=== PATIENT | female | born 1955 | race Two or more races ===

== ENCOUNTER 2017-03-29 11:28 | Inpatient (IN) | payer MEDICAID ==
[~2017-03-29] VITALS: Ht 154.9 cm; Wt 86.2 kg
[2017-03-29 12:04] LABS: Basophils # (auto) 0.1 uL; Basophils % (auto) 0.9 % (0.0-2.0); Eosinophils # (auto) 0.3 uL; Eosinophils % (auto) 4.2 % (0.0-7.0); Hematocrit 43.2 % (36.0-46.0); Hemoglobin 14.5 g/dL (12.2-16.2); Lymphocytes # (auto) 2.2 uL; Lymphocytes % (auto) 30.2 % (10.0-50.0); Mean Corpuscular Hemoglobin 29.6 pg (28.0-32.0); Mean Corpuscular Hgb Conc. 33.4 g/dL (32.0-36.0); Mean Corpuscular Volume 88.5 fL (80.0-100.0); Monocytes # (auto) 0.6 uL; Monocytes % (auto) 7.8 % (0.0-12.0); Neutrophils # (auto) 4.1 uL; Neutrophils % (auto) 56.9 % (37.0-80.0); Nucleated Red Blood Cells % 0.1 %; Platelet Count (auto) 228 10^3/uL (140-450); Red Blood Cells 4.88 10^6/uL (4.0-5.20); Red Cell Distribution Width 13.7 % (11.8-14.3); White Blood Cell 7.2 10^3/uL (4.4-10.8)
[2017-03-29 12:31] LABS: Alanine Aminotransferase 38 U/L (13-56); Anion Gap 8 (5-15); Aspartate Aminotransferase 27 U/L (15-37); BUN/Creatinine Ratio 18.9; Blood Urea Nitrogen 14 mg/dL (7-18); Calcium 9.6 mg/dL (8.5-10.1); Carbon Dioxide 28 mmol/L (21-32); Chloride 101 mmol/L (98-107); GFR African American 102 mL/min; GFR Non-African American 85 mL/min; Glucose 212 mg/dL (74-106); Magnesium 1.9 mg/dL (1.6-2.6); Sodium 137 mmol/L (136-145)
[2017-03-29 12:35] LABS: Alkaline Phosphatase 119 U/L (45-117); Bilirubin, Total 0.5 mg/dL (0.2-1.0); Total Protein 7.9 g/dL (6.4-8.2)
[2017-03-29] MEDS ORDERED: cloNIDine HCL 0.1 MG TAB ONE (19:27)
[2017-03-29] MEDS ORDERED: MORPHINE SULFATE 4 MG/ML SYR/VIAL IV PRN ×2 (19:30)
[2017-03-29] MEDS ORDERED: ACETAMINOPHEN 500 MG TAB PO PRN (19:30)
[2017-03-29] MEDS ORDERED: NITROGLYCERIN 0.4 MG SL TAB SL PRN (19:30)
[2017-03-29] MEDS ORDERED: TEMAZEPAM 15 MG CAP PO PRN (19:30)
[2017-03-29] MEDS ORDERED: PROMETHAZINE HCL 25 MG/ML 1ML IV PRN (19:30)
[2017-03-29] MEDS ORDERED: LACTULOSE 20Gm/30ML SOLN PO PRN (19:30)
[2017-03-29] MEDS ORDERED: ASPirin 81 mg TAB PO ONE (19:30)
[2017-03-29] MEDS ORDERED: cloNIDine HCL 0.1 MG TAB PO ONE ×2 (19:30)
[2017-03-29] MEDS ORDERED: HYDROcodone-ACET 5/325MG TAB PO PRN (19:30)
[2017-03-29] MEDS ORDERED: DEXTROSE (50%) 50ML SYRG IV PRN (19:30)
[2017-03-29] MEDS ORDERED: LORazepam 0.5 MG TAB PO PRN (19:30)
[2017-03-29 20:01] LABS: INR 0.95 (0.9-1.15); Partial Thromboplastin Time 26.2 sec (22.64-33.71); Prothrombin Time 10.4 sec (9.37-12.3)
[2017-03-29 22:15] VITALS: BP 106/61
[2017-03-29 22:24] LABS: Urine Bacteria NONE SEEN /hpf (None Seen); Urine Blood Negative /uL (Negative); Urine Specific Gravity 1.008 (1.001-1.035); Urine WBC 1 /hpf (0 - 5)
[2017-03-29] MEDS: ATORVASTATIN 20 MG TAB PO SCH (22:28)
[2017-03-29] MEDS: METOPROLOL TARTRATE 25 MG TAB PO SCH (22:29)
[2017-03-29] MEDS: InsuLIN REG 1unit/0.01ml Soln (100units/ml) SC SCH (22:31)
[2017-03-29] MEDS: ACCU-CHEK COMFORT CURVE STRIP VI SCH (22:32)
[2017-03-29 22:41] LABS: Alcohol, Urine < 3.0 mg/dL (0-5); Amphetamine Screen, Urine NEGATIVE (NEGATIVE); Barbiturate Scree,Urine NEGATIVE (NEGATIVE); Benzodiazephine Screen, Urine NEGATIVE (NEGATIVE); Cannabinoid Screen, Urine NEGATIVE (NEGATIVE); Cocaine Screen, Urine NEGATIVE (NEGATIVE); Opiate Scree,Urine NEGATIVE (NEGATIVE); Phencyclidine Screen, Urine NEGATIVE (NEGATIVE)
[2017-03-30] MEDS: SODIUM CHLORIDE 0.9% 1,000 ML IV SCH ×2 (02:07→08:47)
[2017-03-30 04:41] VITALS: BP 96/53
[2017-03-30] MEDS: ACCU-CHEK COMFORT CURVE STRIP VI SCH ×4 (07:08→22:48)
[2017-03-30] MEDS: InsuLIN REG 1unit/0.01ml Soln (100units/ml) SC SCH ×4 (07:08→22:47)
[2017-03-30 07:40] LABS: Cholesterol 135 mg/dL (< 200); HDL Cholesterol 50 mg/dL (40-59); LDL Cholesterol 69 mg/dL (< 100); Triglycerides 148 mg/dL (< 150)
[2017-03-30 09:00] VITALS: BP 104/59
[2017-03-30] MEDS ORDERED: GLIP-115 PO (09:32)
[2017-03-30] MEDS ORDERED: NAP500T PO (09:32)
[2017-03-30] MEDS ORDERED: LORA-622 PO (09:32)
[2017-03-30] MEDS ORDERED: HYDR12.56 PO (09:32)
[2017-03-30] MEDS ORDERED: METF-370 PO (09:32)
[2017-03-30] MEDS ORDERED: LEVO50TA7 PO (09:32)
[2017-03-30] MEDS ORDERED: FAMO-12 PO (09:32)
[2017-03-30] MEDS ORDERED: ATOR10TA PO (09:32)
[2017-03-30] MEDS ORDERED: RANI300C7 PO (09:32)
[2017-03-30] MEDS ORDERED: FLUT0.05 NAS (09:32)
[2017-03-30] MEDS: METOPROLOL TARTRATE 25 MG TAB PO SCH ×2 (10:00→21:45)
[2017-03-30] MEDS: NITROGLYCERIN 0.2MG/HR TOPICAL PATCH TD SCH (10:00)
[2017-03-30] MEDS: PANTOPRAZOLE 40 MG TAB PO SCH (10:20)
[2017-03-30] MEDS: ASPirin 81 mg TAB PO SCH (10:20)
[2017-03-30] MEDS: ENOXAPARIN SOD 40 MG/0.4 ML SYRINGE SC SCH (10:20)
[2017-03-30] MEDS ORDERED: LOSA50TA6 PO (10:34)
[2017-03-30 13:00] VITALS: BP 113/55
[2017-03-30 17:43] VITALS: BP 131/72
[2017-03-30] MEDS: ATORVASTATIN 20 MG TAB PO SCH (21:43)
[2017-03-30 21:45] VITALS: BP 129/75
[2017-03-31] MEDS: SODIUM CHLORIDE 0.9% 1,000 ML IV SCH ×2 (00:58→12:22)
[2017-03-31 05:11] VITALS: BP 134/80
[2017-03-31] MEDS: InsuLIN REG 1unit/0.01ml Soln (100units/ml) SC SCH ×3 (07:00→17:00)
[2017-03-31] MEDS: ACCU-CHEK COMFORT CURVE STRIP VI SCH ×3 (07:27→17:00)
[2017-03-31 09:00] VITALS: BP 122/76
[2017-03-31] MEDS ORDERED: ADENOSINE 72 MG in GIVE UN-DILUTED 0 ML IV ONE (09:00)
[2017-03-31 09:50] VITALS: BP 178/82
[2017-03-31] MEDS: ENOXAPARIN SOD 40 MG/0.4 ML SYRINGE SC SCH (10:00)
[2017-03-31] MEDS: METOPROLOL TARTRATE 25 MG TAB PO SCH (10:00)
[2017-03-31] MEDS: PANTOPRAZOLE 40 MG TAB PO SCH (10:00)
[2017-03-31] MEDS: NITROGLYCERIN 0.2MG/HR TOPICAL PATCH TD SCH (10:00)
[2017-03-31] MEDS: ASPirin 81 mg TAB PO SCH (10:00)
[2017-03-31 11:06] LABS: Folate (Folic Acid) 17.63 ng/mL (5.38-24)
[2017-03-31 12:00] VITALS: BP 143/73
[2017-03-31 17:00] VITALS: BP 133/74
== END 2017-03-31 19:35 | disposition home or self-care (01) | DRG 47 ==
LOC: ER 11:28 → TELE 11:29 → TELE-CENTR 19:58
PROVIDERS: ADMIT Internal Medicine; ATTEND Internal Medicine
DX: G45.9 Transient cerebral ischemic attack, unspecified (principal); I24.9 Acute ischemic heart disease, unspecified; E11.65 Type 2 diabetes mellitus with hyperglycemia; I10 Essential (primary) hypertension; R07.89 Other chest pain; J44.9 Chronic obstructive pulmonary disease, unspecified; R63.4 Abnormal weight loss; I16.0 Hypertensive urgency; E03.9 Hypothyroidism, unspecified; E66.9 Obesity, unspecified; R21 Rash and other nonspecific skin eruption; Z68.35 Body mass index [BMI] 35.0-35.9, adult; Z63.4 Disappearance and death of family member; Z82.49 Family history of ischemic heart disease and other diseases of the circulatory system; Z83.3 Family history of diabetes mellitus; Z87.891 Personal history of nicotine dependence; Z90.710 Acquired absence of both cervix and uterus; Z90.49 Acquired absence of other specified parts of digestive tract; Z88.6 Allergy status to analgesic agent
CPT/HCPCS: 36415; 70450; 71046; 80053; 80061; 80307; 81001; 82550; 82607; 82746; 82962; 83036; 83735; 84443; 84484; 85025; 85379; 85610; 85652; 85730; 86141; 93005; 93017; 93306; 93886; 94761; J0153; J1815

== ENCOUNTER 2021-06-15 14:24 | Emergency (ER) | payer OTHER, MEDICAID ==
[~2021-06-15] VITALS: Ht 165.1 cm; Wt 75.7 kg
[~2021-06-15 14:24] MED LIST: ATOR10TA PO; FAMO-12 PO; FLUT0.05 NAS; GLIP5TAB12 PO; HYDR12.56 PO; LEVO50TA7 PO; LORA-622 PO; LOSA-69 PO; METF-370 PO; NAP500T PO; RANI300C7 PO
[2021-06-15] MEDS ORDERED: cloNIDine HCL 0.1 MG TAB ONE (14:35)
[2021-06-15] MEDS ORDERED: cloNIDine HCL 0.1 MG TAB PO ONE (14:45)
[2021-06-15 15:46] LABS: Basophils # (auto) 0 10 ^3/uL (0-0.2); Basophils % (auto) 0.5 % (0.0-2.0); Eosinophils # (auto) 0.1 10 ^3/uL (0-0.8); Eosinophils % (auto) 1.6 % (0.0-7.0); Hematocrit 38.4 % (36.0-46.0); Hemoglobin 12.9 g/dL (12.2-16.2); Lymphocytes # (auto) 1.8 10 ^3/uL (0.4-5.4); Lymphocytes % (auto) 27.8 % (10.0-50.0); Mean Corpuscular Hemoglobin 28.5 pg (28.0-32.0); Mean Corpuscular Hgb Conc. 33.7 g/dL (32.0-36.0); Mean Corpuscular Volume 84.6 fL (80.0-100.0); Monocytes # (auto) 0.4 10 ^3/uL (0-1.3); Monocytes % (auto) 5.8 % (0.0-12.0); Neutrophils # (auto) 4.2 10 ^3/uL (1.6-8.6); Neutrophils % (auto) 64.3 % (37.0-80.0); Nucleated Red Blood Cells % 0.1 %; Red Blood Cells 4.53 10^6/uL (4.0-5.20); Red Cell Distribution Width 14.9 % (11.8-14.3); White Blood Cell 6.6 10^3/uL (4.4-10.8)
[2021-06-15] MEDS ORDERED: ACETAMINOPHEN 325 MG TAB PO ONE (16:00)
[2021-06-15 16:08] LABS: Albumin 3.8 g/dL (3.4-5.0); BUN/Creatinine Ratio 18.1; Calcium 10.2 mg/dL (8.5-10.1); Potassium 4.1 mmol/L (3.5-5.1)
[2021-06-15 16:11] LABS: Bilirubin, Total 0.6 mg/dL (0.2-1.0); Total Protein 7.6 g/dL (6.4-8.2)
[2021-06-15] MEDS ORDERED: MECLIZINE HCL 25 MG TAB PO ONE (17:30)
[2021-06-15] MEDS ORDERED: ONDANSETRON ODT 4 MG TAB PO ONE (17:30)
[2021-06-15 17:58] VITALS: BP 112/55
[2021-06-15] MEDS ORDERED: MECL25CH38 PO (18:05)
== END 2021-06-15 18:08 | disposition home or self-care (01) ==
LOC: ER 14:24
DX: I10 Essential (primary) hypertension (principal); E11.9 Type 2 diabetes mellitus without complications; Z90.710 Acquired absence of both cervix and uterus; Z88.6 Allergy status to analgesic agent
CPT/HCPCS: 36415; 71045; 80053; 84484; 85025; 93005; 99285; J8597

== ENCOUNTER 2022-12-26 10:57 | Emergency (ER) | payer OTHER, MEDICAID ==
[~2022-12-26] VITALS: Ht 154.9 cm; Wt 75.1 kg
[2022-12-26 10:57] VITALS: BP 137/67; PULSE 71; RESP 18; TEMP 97.7; O2SAT 98
[~2022-12-26 10:57] MED LIST changes: -HYDR12.56 PO; +HYDR12.59 PO; -LOSA-69 PO; +LOSA50TA46 PO; +MECL25CH38 PO
[2022-12-26] MEDS ORDERED: CEPH500C PO (12:38)
== END 2022-12-26 12:53 | disposition home or self-care (01) ==
LOC: ER 10:57
DX: L03.032 Cellulitis of left toe (principal); L03.031 Cellulitis of right toe; E11.9 Type 2 diabetes mellitus without complications; I10 Essential (primary) hypertension; Z90.710 Acquired absence of both cervix and uterus; Z88.6 Allergy status to analgesic agent

== ENCOUNTER 2024-11-29 09:29 | Emergency (ER) | payer OTHER, MEDICAID ==
[~2024-11-29] VITALS: Ht 152.4 cm; Wt 74.4 kg
[~2024-11-29 09:29] MED LIST changes: +CEPH500C PO; -GLIP5TAB12 PO; +GLIP5TAB21 PO; +LOSA-534 PO; -LOSA50TA46 PO
--- NOTE | 2024-11-29 10:27 | ED.PDOC ---
Eye-HPI HPI Comments 69-year-old female who is [place]i-speaking presents to the ER with a chief complaint of tongue pain. Patient reports that she was referred to [facility] by her dental provider for maxillofacial surgeon. The patient went to that referred dentist this morning and was informed by Dr. Feliciano that there were no oral surgeons in the [facility] and has to go to the ER. Denies any other symptoms at this time. Chief Complaint: Tooth Pain Time Seen by MD: 10:20 Primary Care Provider: Chantelle Allergies: Coded Allergies: Tramadol (Verified Allergy, Unknown, 03/29/17) Home Meds Active Scripts Cephalexin Monohydrate (Cephalexin) 500 Mg Cap, 1 CAP PO TID, #30 CAP Prov:MAGGIE DELGADILLO 12/26/22 Meclizine HCl (Meclizine) 25 Mg Chw, 25 MG PO Q6HP PRN for 10 Days, #14 TAB Prov:LUIS CARSON MD 06/15/21 Reported Medications Losartan Potassium (Losartan Potassium) 50 Mg Tab, 50 MG PO DAILY for 30 Days, MG 03/30/17 Loratadine (Claritin) 10 Mg Tab, 1 TAB PO DAILY, #30 TAB 5 Refills 03/30/17 Famotidine (Famotidine) 20 Mg Tab, 20 MG PO BID for 30 Days, MG 03/30/17 Naproxen (NAPROSYN TABLET) 500 Mg Tb, 1 TAB PO BID, #60 TAB 1 Refill 03/30/17 Atorvastatin Calcium (Lipitor) 10 Mg Tab, 1 TAB PO QPM, #90 TAB 1 Refill 03/30/17 Fluticasone Propionate (Fluticasone Propionate) 0.05 % Cre, 50 MCG [facility] for 30 Days, MCG 03/30/17 Glipizide (Glipizide) 5 Mg Tab, 5 MG PO for 30 Days, MG 03/30/17 Hydrochlorothiazide (Hydrochlorothiazide) 12.5 Mg Cap, 12.5 MG PO DAILY for 30 Days, MG 03/30/17 Levothyroxine Sodium (Levothyroxine Sodium) 50 Mcg Tab, 75 MCG PO QAM for 30 Days, MCG 03/30/17 Ranitidine Hcl (Ranitidine Hcl) 300 Mg Cap, 1 CAP PO DAILY, #30 CAP 3 Refills 03/30/17 Metformin Hydrochloride (Metformin Hcl) 500 Mg Tab, 1000 MG PO IBID for 30 Days, MG 03/30/17 Mode of Arrival: Ambulatory Past Medical History PAST MEDICAL HISTORY: DM, HTN, Thyroid Surgical History: Hysterectomy [employer] History: No Pertinent [employer] History Family History Family History: Reviewed,noncontributory to illness, Unknown Social History Smoker: Non-Smoker Alcohol: Denies ETOH Use Drugs: Denies Drug Use Lives In: Home Constitutional: denies: chills, diaphoresis, fatigue, fever, malaise, sweats, weakness, others EENTM: reports: mouth pain, others; denies: blurred vision, double vision, ear bleeding, ear discharge, ear drainage, ear pain, ear ringing, eye pain, eye redness, hearing loss, mouth swelling, nasal discharge, nose bleeding, nose congestion, nose pain, photophobia, tearing, throat pain, throat swelling, voice changes Respiratory: denies: cough, hemoptysis, orthopnea, SOB at rest, shortness of breath, SOB with excertion, stridor, wheezing, others Cardiovascular: denies: chest pain, dizzy spells, diaphoresis, Dyspnea on exertion, edema, irregular heart beat, left arm pain, lightheadedness, p alpitations, PND, syncope, others Gastrointestinal: denies: abdomen distended, abdominal pain, blood streaked bowels, constipated, diarrhea, dysphagia, difficulty swallowing, hematemesis, melena, nausea, poor appetite, poor fluid intake, rectal bleeding, rectal pain, vomiting, others Genitourinary: denies: abnormal vagina bleeding, burning, dyspareunia, dysuria, flank pain, frequency, hematuria, incontinence, pain, , vagina discharge, urgency, others Neurological: denies: dizziness, fainting, headache, left sided numbness, left sided weakness, numbness, paresthesia, pre-existing deficit, right sided numbness, right sided weakness, seizure, speech problems, tingling, tremors, weakness, others Musculoskeletal: denies: back pain, gout, joint pain, joint swelling, muscle pain, muscle stiffness, neck pain, others Integumetry: denies: bruises, change in color, change in hair/nails, dryness, laceration, lesions, lumps, rash, wounds, others Allergic/Immunocompromised: denies: Difficulty Healing, Frequent Infections, Hives, Itching, others Hematologic/Lymphatic: denies: anemia, blood clots, easy bleeding, easy bruising, swollen glands, others Endocrine: denies: excessive hunger, excessive sweating, excessive thirst, excessive urination, flushing, intolerance to cold, intolerance to heat, unexplained weight gain, unexplained weight loss, others Psychiatric: denies: anxiety, bipolar disorder, depression, hopeless, panic disorder, schizophrenia, sleepless, suicidal, others All Other Systems: Reviewed and Negative Physical Exam Exam Comments 1 mm white papule to the tip of the right side tongue, mmm, uvula midline General Appearance: No Apparent Distress, Normal HEENT: Normal ENT Inspection, Pharynx Normal, TMs Normal Neck: Full Range of Motion, Non-Tender, Normal, Normal Inspection Respiratory: Chest Non-Tender, Lungs Clear, No Accessory Muscle Use, No Respiratory Distress, Normal Breath Sounds Cardiovascular: No Edema, No JVD, No Murmur, No Gallop, Normal Peripheral Pulses, Regular Rate/Rhythm Breast Exam: Deferred Gastrointestinal: No Organomegaly, Non Tender, No Pulsatile Mass, Normal Bowel Sounds, Soft Genitalia: Deferred Pelvic: Deferred Rectal: Deferred Extremities: No calf tenderness, Normal capillary refill, Normal inspection, Normal range of motion, Non-tender, No pedal edema Musculoskeletal : Apperance: Normal Neurologic: Alert, fisher terrapin II-XII nml as Tested, No Motor Deficits, Normal Affect, Normal Mood, No Sensory Deficits Cerebellar Function: Normal Reflexes: Normal Skin: Dry, Normal Color, Warm Lymphatic: No Adenopathy Was a procedure done? Was a procedure done?: No EENT DIFF Eye: N/A, Other Nose: N/A Mouth: N/A Sore Throat: N/A X-Ray, Labs, Meds, VS Vital Signs Date Time Temp Pulse Resp B/P (MAP) Pulse Ox O2 Delivery O2 Flow Rate FiO2 11/29/24 10:33 98.7 78 16 142/89 (106) 98 98.7 11/29/24 10:33 78 16 98 Room Air 11/29/24 09:31 97.6 62 15 160/48 95 97.6 X-Ray, Labs, Meds, VS Comment ROS physical examination there were no indications for an urgent referral at this time. Patient has been advised to follow up with the PCP within the next 24 hours to request the maxilla facial surgeon referral and patient verbalized understanding of the plan Patient is stable for discharge at this time. External notes reviewed. Test results and diagnostic imaging interpreted. All diagnostic findings, discharge care, education and instructions provided Follow-up with PCP in 2 to 3 days Patient verbalized understanding and agreed to treatment plan Vital signs stable, afebrile, no acute distress noted Patient ambulatory with strong steady gait Advised to return precautions for any new or worsening symptoms, return to ER immediately for re-evaluation Patient is aware that the purpose of this visit was for an acute medical emergency requiring emergent stabilization. Chronic conditions, including malignancies have not been ruled out. Patient is instructed to follow up with PCP as directed and discharge instructions for continued care and workup. If unable to arrange follow-up, patient is to return to the emergency department for reassessment. Patient (parent or legal guardian if applicable) was given verbal and written discharge instructions and acknowledges understanding. Time of 1ST Reevaluation: 10:30 Reevaluation 1ST: Improved Patient Education/Counseling: Diagnosis, Treatment Family Education/Counseling: Diagnosis, Treatment SEPSIS Sepsis Screen Date sepsis recognized/suspect: Nov 29, 2024 Time Sepsis recognized/suspect: 932 Recent Procedure: No On Antibiotic Therapy: No Respiratory Rate >20: No Heart Rate >90: No Temp<36 C (96.8 F) or >38.3 C: No SBP <90 or MAP <65 mmHG: No New Acute Mental Status Change: No Is the patient on CPAP, BIPAP,: No Vital Signs Date Time Temp Pulse Resp B/P (MAP) Pulse Ox O2 Delivery O2 Flow Rate FiO2 11/29/24 10:33 98.7 78 16 142/89 (106) 98 98.7 11/29/24 10:33 78 16 98 Room Air 11/29/24 09:31 97.6 62 15 160/48 95 97.6 Departure 1 Departure Time of Disposition: 10:55 Impression: Primary Impression: Tongue lump Disposition: 01 HOME / SELF CARE / HOMELESS Condition: Stable Discharged With: Self Critical Care Note Critical Care Time?: No Stability Stability form required: No Heart Score Heart Score: Heart Score Response (Comments) Value History N/A 0 EKG N/A 0 Age N/A 0 Risk Factors N/A 0 Troponin N/A 0 Total 0 I personally scribed for SAÚL ZIMMERMAN NP ([email or web address]) on 11/29/24 at 10:27. Electronically submitted by Jamari Nayak ([email or web address]). SAÚL ZIMMERMAN NP Nov 29, 2024 10:27
[2024-11-29 10:33] VITALS: BP 142/89; PULSE 78; RESP 16; TEMP 98.7; O2SAT 98
== END 2024-11-29 10:37 | disposition home or self-care (01) ==
LOC: ER 09:29
DX: K14.6 Glossodynia (principal); R22.0 Localized swelling, mass and lump, head; E11.9 Type 2 diabetes mellitus without complications; I10 Essential (primary) hypertension; E78.5 Hyperlipidemia, unspecified; Z79.899 Other long term (current) drug therapy; Z90.710 Acquired absence of both cervix and uterus; Z88.5 Allergy status to narcotic agent